=== PATIENT | male | born 1960 | race Caucasian/White ===

== ENCOUNTER 2020-12-14 08:35 | Inpatient (IN) | payer MEDICAID ==
[~2020-12-14] VITALS: Ht 162.6 cm; Wt 74.8 kg
[2020-12-14 11:24] LABS: HEMATOCRIT. 37.5 % (42.0-52.0); HEMOGLOBIN. 13.3 g/dL (14.0-18.0); MEAN CORPUSCULAR HEMOGLOBIN 36.5 pg (28.0-32.0); PLATELET 220 x1000/uL (130-400); RED BLOOD CELL COUNT 3.64 mill/uL (4.7-6.1)
[2020-12-14 11:31] LABS: CLARITY URINE CLOUDY (CLEAR); COLOR URINE YELLOW (YELLOW); KETONES URINE NEGATIVE (NEGATIVE); LEUKOCYTE ESTERASE URINE 2+ (NEGATIVE); NITRITE URINE NEGATIVE (NEGATIVE); OCCULT BLOOD URINE 3+ (NEGATIVE); PH URINE 5.5 (4.5-8.0); PROTEIN URINE TRACE (NEGATIVE); SPECIFIC GRAVITY URINE 1.014 (1.005-1.030); UROBILINOGEN URINE 0.2 E.U./dL (0.2-1.0)
[2020-12-14 11:42] LABS: NUCLEATED RED BLOOD CELLS 2 /100 WBC
[2020-12-14 11:43] LABS: PLATELET ESTIMATE NORMAL
[2020-12-14] MEDS ORDERED: SODIUM CHLORIDE 0.9% 1,000 ML IV ONE (12:45)
[2020-12-14] MEDS ORDERED: CEFTRIAXONE 1 G PREMIX 50 ML IV ONE (12:45)
[2020-12-14 22:50] VITALS: BP 105/57
[2020-12-14] MEDS ORDERED: CEFTRIAXONE 1 G PREMIX 50 ML IV SCH (23:45)
[2020-12-14 23:51] VITALS: BP 105/57
[2020-12-15] VITALS: BP 104/54
[2020-12-15] MEDS: SODIUM CHLORIDE 0.9% 1,000 ML IV SCH ×2 (00:30→10:14)
[2020-12-15 04:00] VITALS: BP 107/60
[2020-12-15 08:00] VITALS: BP 96/51
[2020-12-15 08:20] LABS: HEMATOCRIT. 36.2 % (42.0-52.0); HEMOGLOBIN. 12.9 g/dL (14.0-18.0); MEAN CORPUSCULAR HEMOGLOBIN 36.2 pg (28.0-32.0); MEAN CORPUSCULAR VOLUME 101.7 fL (80.0-94.0); MEAN PLATELET VOLUME 8.8 fl (7.4-10.4); PLATELET 175 x1000/uL (130-400); RED BLOOD CELL COUNT 3.56 mill/uL (4.7-6.1); RED CELL DISTRIBUTION WIDTH 13.1 % (11.6-14.6)
[2020-12-15 12:00] VITALS: BP 94/58
[2020-12-15 13:30] LABS: PLATELET ESTIMATE NORMAL
[2020-12-15] MEDS: TAMSULOSIN HCL 0.4MG SR CAPSULE PO SCH (14:17)
[2020-12-15] MEDS: CEFTRIAXONE 1,000 MG in DEXTROSE 5% WATER 50 ML IV SCH (14:18)
[2020-12-15 16:00] VITALS: BP 108/69
[2020-12-15 20:00] VITALS: BP 121/57
[2020-12-16] VITALS: BP 101/55
[2020-12-16 04:00] VITALS: BP 95/56
[2020-12-16] MEDS: SODIUM CHLORIDE 0.9% 1,000 ML IV SCH (07:01)
[2020-12-16 08:00] VITALS: BP 100/57
[2020-12-16] MEDS: TAMSULOSIN HCL 0.4MG SR CAPSULE PO SCH (08:57)
[2020-12-16 10:01] LABS: HEMOGLOBIN. 12.8 g/dL (14.0-18.0); MEAN CORPUSCULAR HEMOGLOBIN 36.6 pg (28.0-32.0); MEAN PLATELET VOLUME 8.4 fl (7.4-10.4); PLATELET 156 x1000/uL (130-400); RED CELL DISTRIBUTION WIDTH 13.3 % (11.6-14.6)
[2020-12-16 10:15] LABS: CHLORIDE 111 mEq/L (98-107)
[2020-12-16 10:51] LABS: PLATELET ESTIMATE NORMAL
[2020-12-16 12:00] VITALS: BP 100/56
[2020-12-16] MEDS: CEFTRIAXONE 1,000 MG in DEXTROSE 5% WATER 50 ML IV SCH (14:37)
[2020-12-16 16:00] VITALS: BP 114/51
[2020-12-16 20:00] VITALS: BP 113/68
[2020-12-16] MEDS: ACETAMINOPHEN 325MG TABLET PO PRN (21:46)
[2020-12-17] MEDS: SODIUM CHLORIDE 0.9% 1,000 ML IV SCH (06:03)
[2020-12-17 07:27] LABS: CHLORIDE 107 mEq/L (98-107)
[2020-12-17 08:00] VITALS: BP 114/54
[2020-12-17 08:06] LABS: BASOPHILS % 0.9 % (0.0-2.0); EOSINOPHILS % 0.2 % (0.0-5.0); HEMOGLOBIN. 12.4 g/dL (14.0-18.0); LYMPHOCYTES % 10.3 % (20.0-50.0); MEAN CORPUSCULAR HEMOGLOBIN 36.9 pg (28.0-32.0); MEAN CORPUSCULAR VOLUME 101.2 fL (80.0-94.0); MEAN PLATELET VOLUME 9.1 fl (7.4-10.4); MONOCYTES % 6.9 % (2.0-8.0); NEUTROPHILS % 81.7 % (40.0-76.0); PLATELET 167 x1000/uL (130-400); RED BLOOD CELL COUNT 3.36 mill/uL (4.7-6.1); RED CELL DISTRIBUTION WIDTH 12.9 % (11.6-14.6)
[2020-12-17] MEDS: ACETAMINOPHEN 325MG TABLET PO PRN ×2 (08:56→20:51)
[2020-12-17] MEDS: TAMSULOSIN HCL 0.4MG SR CAPSULE PO SCH (08:57)
[2020-12-17 12:00] VITALS: BP 101/59
[2020-12-17] MEDS: CEFTRIAXONE 1,000 MG in DEXTROSE 5% WATER 50 ML IV SCH (13:53)
[2020-12-17 16:00] VITALS: BP 108/56
[2020-12-17 20:00] VITALS: BP 101/59
[2020-12-18] VITALS: BP 94/56
[2020-12-18 04:00] VITALS: BP 116/70
[2020-12-18 06:29] LABS: CHLORIDE 108 mEq/L (98-107)
[2020-12-18 07:00] LABS: HEMATOCRIT. 33.8 % (42.0-52.0); MEAN CORPUSCULAR HEMOGLOBIN 36.6 pg (28.0-32.0); MEAN CORPUSCULAR VOLUME 102.8 fL (80.0-94.0); MEAN PLATELET VOLUME 8.8 fl (7.4-10.4); PLATELET 181 x1000/uL (130-400); RED BLOOD CELL COUNT 3.29 mill/uL (4.7-6.1)
[2020-12-18 08:00] VITALS: BP 114/69
[2020-12-18] MEDS: TAMSULOSIN HCL 0.4MG SR CAPSULE PO SCH (08:52)
[2020-12-18] MEDS: ACETAMINOPHEN 325MG TABLET PO PRN (08:52)
[2020-12-18 11:44] LABS: PLATELET ESTIMATE NORMAL
[2020-12-18 12:00] VITALS: BP 100/57
[2020-12-18 14:51] VITALS: BP 100/57
[2020-12-18] MEDS ORDERED: CEPH500T MT (15:07)
== END 2020-12-18 16:15 | disposition home or self-care (01) | DRG 720 ==
LOC: ER 08:35 → 6EST 14:14 → EDBEDREQTM 14:20 → EDBEDREQ 14:20 → ENRESERV 20:23
PROVIDERS: ADMIT Internal Medicine; ATTEND Internal Medicine
DX: A41.59 Other Gram-negative sepsis (principal); R64 Cachexia; N17.9 Acute kidney failure, unspecified; D63.8 Anemia in other chronic diseases classified elsewhere; I12.0 Hypertensive chronic kidney disease with stage 5 chronic kidney disease or end stage renal disease; N18.6 End stage renal disease; E86.9 Volume depletion, unspecified; F41.9 Anxiety disorder, unspecified; N39.0 Urinary tract infection, site not specified; E87.8 Other disorders of electrolyte and fluid balance, not elsewhere classified; N40.0 Benign prostatic hyperplasia without lower urinary tract symptoms; R62.50 Unspecified lack of expected normal physiological development in childhood; Z20.822 Contact with and (suspected) exposure to COVID-19; Z79.899 Other long term (current) drug therapy; Z68.28 Body mass index [BMI] 28.0-28.9, adult
CPT/HCPCS: 36415; 76770; 80048; 81003; 85025; 87077; 87186; 87426; 99285; J0696; J7030; J7060

== ENCOUNTER 2022-01-05 05:44 | Emergency (ER) | payer MEDICAID ==
[~2022-01-05] VITALS: Ht 172.7 cm; Wt 73.0 kg
[~2022-01-05 05:44] MED LIST: LEVO-65 MT; TAMS-11 PO
[2022-01-05 05:46] VITALS: BP 156/71
[2022-01-05] MEDS ORDERED: ACETAMINOPHEN 325MG TABLET PO ONE (06:00)
[2022-01-05 06:44] LABS: CLARITY URINE CLEAR (CLEAR); COLOR URINE ORANGE (YELLOW); KETONES URINE NEGATIVE (NEGATIVE); LEUKOCYTE ESTERASE URINE TRACE (NEGATIVE); NITRITE URINE NEGATIVE (NEGATIVE); OCCULT BLOOD URINE 3+ (NEGATIVE); PH URINE 5.5 (4.5-8.0); PROTEIN URINE 1+ (NEGATIVE); SPECIFIC GRAVITY URINE 1.009 (1.005-1.030); UROBILINOGEN URINE 0.2 E.U./dL (0.2-1.0)
== END 2022-01-05 08:23 | disposition home or self-care (01) ==
LOC: ER 05:56
DX: R33.9 Retention of urine, unspecified (principal); Z98.890 Other specified postprocedural states
CPT/HCPCS: 51702; 81003; 99283; 99284; A4315